=== PATIENT | male | born 2000 | race Caucasian/White ===

== ENCOUNTER 2019-08-07 14:54 | Emergency (ER) | payer SELFPAY ==
[~2019-08-07] VITALS: Ht 175.3 cm; Wt 54.4 kg
[~2019-08-07 14:54] MED LIST: ACET-73 PO; IBUP-1627 PO; NAPR220T66 PO; OSEL75CA PO
[2019-08-07 15:43] VITALS: BP 113/60
--- NOTE | 2019-08-07 15:44 | NUR ---
Discharge instructions given and patient discarged.
== END 2019-08-07 15:45 | disposition home or self-care (01) ==
LOC: ER 15:02
DX: R07.89 Other chest pain (principal); R05 Cough; K21.9 Gastro-esophageal reflux disease without esophagitis; Z79.1 Long term (current) use of non-steroidal anti-inflammatories (NSAID); Z79.899 Other long term (current) drug therapy
CPT/HCPCS: 71101; A4663

== ENCOUNTER 2020-01-19 19:13 | Emergency (ER) | payer SELFPAY ==
[~2020-01-19] VITALS: Ht 175.3 cm; Wt 56.7 kg
--- NOTE | 2020-01-19 21:45 | NUR ---
Patient discharged to home in stable conditon. Written and verbal after care instructions given. Patient verbalizes understanding of instructions. walked out of ER with no distress noted.
== END 2020-01-19 21:47 | disposition home or self-care (01) ==
LOC: ER 19:15
DX: B35.8 Other dermatophytoses (principal); L25.9 Unspecified contact dermatitis, unspecified cause; K21.9 Gastro-esophageal reflux disease without esophagitis; Z79.899 Other long term (current) drug therapy
CPT/HCPCS: A4663

== ENCOUNTER 2020-02-20 05:40 | Emergency (ER) | payer MEDICAID ==
[~2020-02-20] VITALS: Ht 175.3 cm; Wt 54.4 kg
--- NOTE | 2020-02-20 05:45 | NUR ---
Patient was brought into the ER by his mother complaining of right flank pain x 2 days worsening this morning to the point of waking him up. pain rated 10/10. He is visibly grimacing and guarding his right side. Patient was seen pacing in the waiting room while his mother filled out admission paperwork. Vital signs stable.
[2020-02-20 06:12] LABS: BASOPHILS # (AUTO) 0.1 K/uL (0.0-8.0); BASOPHILS % (AUTO) 1.1 % (0.0-2.0); EOSINOPHILS # (AUTO) 0.2 K/uL (0.0-0.7); EOSINOPHILS % (AUTO) 2.7 % (0.0-7.0); HEMATOCRIT 43.2 % (36.7-47.1); HEMOGLOBIN 14.4 g/dL (12.5-16.3); LYMPHOCYTES # (AUTO) 3.5 K/uL (20.0-40.0); LYMPHOCYTES % (AUTO) 38.9 % (20.5-74.5); MEAN CORPUSCULAR HEMOGLOBIN 30.6 uug (23.8-33.4); MEAN CORPUSCULAR HGB CONC 33 g/dL (32.5-36.3); MEAN CORPUSCULAR VOLUME 91.6 fL (73.0-96.2); MONOCYTES # (AUTO) 0.7 K/uL (2.0-10.0); MONOCYTES % (AUTO) 8.4 % (0-11); NEUTROPHILS # (AUTO) 4.4 K/uL (1.8-8.9); NEUTROPHILS % (AUTO) 48.9 % (31.5-64.5); PLATELET COUNT (AUTO) 338 K/uL (152-348); RED BLOOD CELL COUNT(AUTO) 4.71 MIL/uL (4.06-5.63); WHITE BLOOD COUNT (AUTO) 8.9 K/uL (3.6-10.2)
[2020-02-20 06:14] LABS: *BILIRUBIN,URIN NEGATIVE (NEGATIVE); *BLOOD, URINE 2+ (NEGATIVE); *COLOR,URINE YELLOW (YELLOW); *KETONES,URINE NEGATIVE (NEGATIVE); *UROBILINOGEN,URINE 0.2 E.U./dl (NORMAL); LEUKOCYTE ESTERASE ,URINE NEGATIVE (NEGATIVE); NITRITE, URINE NEGATIVE (NEGATIVE); UGLUCOSE NEGATIVE (NEGATIVE)
[2020-02-20] MEDS ORDERED: KETOROLAC TROMETHAMINE 15 MG INJ ONE ×2 (06:18→06:22)
[2020-02-20] MEDS ORDERED: HYDROMORPHONE 1 MG/1 ML DISP.SYRIN ONE (06:19)
[2020-02-20] MEDS ORDERED: ONDANSETRON 4 MG/2 ML VIAL ONE (06:19)
[2020-02-20 06:21] LABS: CREATININE 1.1 mg/dL (0.6-1.3); POTASSIUM 4.1 mmol/L (3.5-5.1)
[2020-02-20 06:25] LABS: *CLARITY,URINE HAZY (CLEAR)
[2020-02-20 06:26] LABS: RBC,URINE 80-100 /HPF (0-3)
[2020-02-20 06:27] LABS: BILIRUBIN,DIRECT 0.1 mg/dL (0.0-0.2); BILIRUBIN,TOTAL 0.2 mg/dL (0.2-1.0); TOTAL PROTEIN, SERUM 8.1 g/dL (6.4-8.2)
[2020-02-20 06:29] LABS: BACTERIA,URINE NONE SEEN /HPF (NONE SEEN); MUCUS,URINE FEW /LPF (0-FEW); SQUAMOUS EPITHELIAL CELL,UR FEW /HPF (NONE SEEN)
[2020-02-20] MEDS: HYDROMORPHONE 1 MG/1 ML DISP.SYRIN IV ONE (06:35)
[2020-02-20] MEDS: IV NORMAL SALINE 1000 ML BAG IV ONE (06:36)
[2020-02-20] MEDS: ONDANSETRON 4 MG/2 ML VIAL IV ONE (06:37)
[2020-02-20] MEDS: KETOROLAC TROMETHAMINE 15 MG INJ IVP ONE (06:41)
--- NOTE | 2020-02-20 07:00 | NUR ---
Reassessed for effectiveness of pain medication. Patient reports feeling much better and rated his pain 1/10.
--- NOTE | 2020-02-20 07:07 | NUR ---
Hand off report given to Paula TILLEY
--- NOTE | 2020-02-20 07:55 | NUR ---
Reviewed D/C instructions and patiet verbalizes understanding, RX given, D/C IV. Patient ambulated out of the ER with a steady gait, mother here to pick him up.
[2020-02-20 08:00] VITALS: BP 123/84
== END 2020-02-20 07:55 | disposition home or self-care (01) ==
LOC: ER 05:42
DX: N23 Unspecified renal colic (principal); K21.9 Gastro-esophageal reflux disease without esophagitis
CPT/HCPCS: 36415; 74176; 80048; 80076; 81000; 81001; 83690; 85025; 87086; 96374; 96375; 99284; J1170; J1885 ×2; J2405; A4663; J7030

== ENCOUNTER 2022-10-18 11:17 | Emergency (ER) | payer SELFPAY ==
[~2022-10-18] VITALS: Ht 172.7 cm; Wt 64.9 kg
[2022-10-18] MEDS ORDERED: ONDANSETRON 4 MG/2 ML VIAL IV ONE (11:30)
[2022-10-18] MEDS ORDERED: KETOROLAC TROMETHAMINE 15 MG INJ IVP ONE (11:30)
[2022-10-18] MEDS ORDERED: MORPHINE SULFATE 2 MG/1 ML DISP.SYRIN IV ONE (11:30)
[2022-10-18] MEDS ORDERED: IV NORMAL SALINE 1000 ML BAG IV ONE (11:30)
[2022-10-18 11:42] LABS: HEMATOCRIT 41.9 % (36.7-47.1); MEAN CORPUSCULAR HEMOGLOBIN 30.7 uug (23.8-33.4); MEAN CORPUSCULAR VOLUME 91.3 fL (73.0-96.2); PLATELET COUNT (AUTO) 247 K/uL (152-348)
[2022-10-18 11:49] LABS: *BILIRUBIN,URIN NEGATIVE (NEGATIVE); *BLOOD, URINE 2+ (NEGATIVE); *CLARITY,URINE CLEAR (CLEAR); *COLOR,URINE YELLOW (YELLOW); *KETONES,URINE TRACE (NEGATIVE); *UROBILINOGEN,URINE 0.2 E.U./dl (NORMAL); LEUKOCYTE ESTERASE ,URINE TRACE (NEGATIVE); NITRITE, URINE NEGATIVE (NEGATIVE); UGLUCOSE NEGATIVE (NEGATIVE)
[2022-10-18] MEDS ORDERED: MORPHINE SULFATE 4 MG/1 ML DISP.SYRIN ONE (11:53)
[2022-10-18] MEDS ORDERED: KETOROLAC TROMETHAMINE 15 MG INJ ONE (11:54)
[2022-10-18] MEDS ORDERED: ONDANSETRON 4 MG/2 ML VIAL ONE (11:54)
[2022-10-18 11:57] LABS: CREATININE 1.2 mg/dL (0.6-1.3); POTASSIUM 3.7 mmol/L (3.5-5.1)
[2022-10-18 12:02] LABS: BILIRUBIN,DIRECT 0.1 mg/dL (0.0-0.2); BILIRUBIN,TOTAL 0.6 mg/dL (0.2-1.0); TOTAL PROTEIN, SERUM 7.7 g/dL (6.4-8.2)
--- NOTE | 2022-10-18 12:08 | NUR ---
PT IS IN ROOM #2B. DR LAMAR EVALUATED THE PT.
[2022-10-18] MEDS ORDERED: AMOX-430 PO (13:40)
[2022-10-18] MEDS ORDERED: ONDA4TAB11 PO (13:40)
[2022-10-18] MEDS ORDERED: TAMS-3 PO (13:40)
--- NOTE | 2022-10-18 14:00 | NUR ---
PT WAS D/C'd HOME. D/C INSTRUCTIONS GIVEN TO THE PT BY DR LAMAR.
[2022-10-18 14:02] VITALS: BP 131/72
[2022-10-18 18:00] LABS: SQUAMOUS EPITHELIAL CELL,UR FEW /HPF (NONE SEEN); WBC,URINE 0-3 /HPF (0-3)
[2022-10-18 18:01] LABS: BACTERIA,URINE FEW /HPF (NONE SEEN)
== END 2022-10-18 14:03 | disposition home or self-care (01) ==
LOC: ER 11:36
DX: N13.2 Hydronephrosis with renal and ureteral calculous obstruction (principal); K52.9 Noninfective gastroenteritis and colitis, unspecified; K21.9 Gastro-esophageal reflux disease without esophagitis; Z87.442 Personal history of urinary calculi
CPT/HCPCS: 99285; 96361; 74176; 96374; 96375; 80076; 80048; 81001; 83690; 85025; 36415; J1885; J2405; J2270; J7040; A4663

== ENCOUNTER 2023-03-19 07:21 | Emergency (ER) | payer SELFPAY ==
[~2023-03-19] VITALS: Ht 172.7 cm; Wt 63.5 kg
[~2023-03-19 07:21] MED LIST changes: -ACET-73 PO; +AMOX-430 PO; -IBUP-1627 PO; -NAPR220T66 PO; +ONDA4TAB11 PO; -OSEL75CA PO; +TAMS-3 PO
[2023-03-19] MEDS ORDERED: IV NORMAL SALINE 1000 ML BAG IV ONE (07:30)
[2023-03-19] MEDS ORDERED: ONDANSETRON 4 MG/2 ML VIAL IV ONE (07:30)
[2023-03-19] MEDS ORDERED: TAMSULOSIN HCL 0.4 MG CAP.SR.24H PO ONE (07:30)
[2023-03-19] MEDS ORDERED: KETOROLAC TROMETHAMINE 15 MG INJ IVP ONE (07:30)
[2023-03-19] MEDS ORDERED: ONDANSETRON 4 MG/2 ML VIAL ONE (07:40)
[2023-03-19] MEDS ORDERED: KETOROLAC TROMETHAMINE 30 MG INJ ONE (07:40)
[2023-03-19] MEDS ORDERED: MORPHINE SULFATE 4 MG/1 ML DISP.SYRIN ONE (07:40)
[2023-03-19] MEDS ORDERED: MORPHINE SULFATE 4 MG/1 ML DISP.SYRIN IV ONE (07:45)
[2023-03-19] MEDS ORDERED: TAMSULOSIN HCL 0.4 MG CAP.SR.24H ONE (07:46)
[2023-03-19 07:47] LABS: HEMATOCRIT 41.8 % (36.7-47.1); MEAN CORPUSCULAR HEMOGLOBIN 30.5 uug (23.8-33.4); MEAN CORPUSCULAR VOLUME 91.4 fL (73.0-96.2); PLATELET COUNT (AUTO) 295 K/uL (152-348)
[2023-03-19 08:02] LABS: BILIRUBIN,DIRECT 0.1 mg/dL (0.0-0.2); BILIRUBIN,TOTAL 0.4 mg/dL (0.2-1.0); CREATININE 1.2 mg/dL (0.6-1.3); POTASSIUM 3.6 mmol/L (3.5-5.1); TOTAL PROTEIN, SERUM 7.9 g/dL (6.4-8.2)
--- NOTE | 2023-03-19 08:29 | NUR ---
Pt seen by . Safety measures in place. Will continue to monitor.
[2023-03-19] MEDS ORDERED: ONDA4TAB11 PO (08:50)
[2023-03-19] MEDS ORDERED: TAMS-3 PO (08:50)
[2023-03-19] MEDS ORDERED: IBUP-1957 PO (08:50)
--- NOTE | 2023-03-19 08:53 | NUR ---
Sent [facility]A to lab. Safety measures in place. Will continue to monitor.
[2023-03-19 09:04] LABS: *BILIRUBIN,URIN NEGATIVE (NEGATIVE); *BLOOD, URINE 3+ (NEGATIVE); *CLARITY,URINE CLEAR (CLEAR); *COLOR,URINE YELLOW (YELLOW); *KETONES,URINE NEGATIVE (NEGATIVE); *UROBILINOGEN,URINE 0.2 E.U./dl (NORMAL); LEUKOCYTE ESTERASE ,URINE NEGATIVE (NEGATIVE); NITRITE, URINE NEGATIVE (NEGATIVE); UGLUCOSE NEGATIVE (NEGATIVE)
--- NOTE | 2023-03-19 09:18 | NUR ---
Pt declined using Ultrasound. Safety measures in place. Will continue to monitor.
[2023-03-19 09:22] LABS: BACTERIA,URINE NONE SEEN /HPF (NONE SEEN)
--- NOTE | 2023-03-19 09:22 | NUR ---
Patient discharged to home in stable condition. Written and verbal after care instructions given. Patient verbalizes understanding of instructions. Informed patient to not drive due to opioid administration. Stressed follow up or return to ER for worsening s/s.
[2023-03-19 09:23] VITALS: BP 112/63
[2023-03-19 09:23] LABS: SQUAMOUS EPITHELIAL CELL,UR NONE SEEN /HPF (NONE SEEN); YEAST,URINE NONE SEEN /HPF (NONE SEEN)
[2023-03-19 09:24] LABS: CALCIUM CARBONATE CRYSTALS,UR NONE SEEN /HPF (NONE SEEN); CALCIUM OXALATE CRYSTALS,UR MANY /HPF (NONE SEEN); CALCIUM PHOSPHATE CRYSTALS,UR NONE SEEN /HPF (NONE SEEN); COARSE GRANULAR CASTS,URINE NONE SEEN /LPF; CYSTINE CRYSTALS,URINE NONE SEEN /HPF (NONE SEEN); FATTY CASTS,URINE NONE SEEN /LPF (NONE SEEN); TRICHOMONAS,URINE NONE SEEN /HPF (NONE SEEN); TRIPLE PHOSPHATE CRYSTAL,UR NONE SEEN /HPF (NONE SEEN); TYROSINE CRYSTAL,URINE NONE SEEN /HPF (NONE SEEN); URIC ACID CRYSTALS,URINE NONE SEEN /HPF (NONE SEEN); URINE AMORPHOUS PHOSPHATES NONE SEEN /HPF; URINE AMORPHOUS URATE NONE SEEN /HPF; WAXY CASTS,URINE NONE SEEN /LPF (NONE SEEN)
[2023-03-19 09:25] LABS: MUCUS,URINE NONE SEEN /LPF (0-FEW); RBC,URINE 80-100 /HPF (0-3); RED BLOOD CELL CASTS,URINE NONE SEEN /LPF (NONE SEEN)
[2023-03-19 09:26] LABS: SPERM,URINE NONE SEEN /HPF (NONE SEEN)
== END 2023-03-19 09:28 | disposition home or self-care (01) ==
LOC: ER 07:21
DX: N20.0 Calculus of kidney (principal); R11.2 Nausea with vomiting, unspecified; K21.9 Gastro-esophageal reflux disease without esophagitis; Z88.1 Allergy status to other antibiotic agents; Z79.1 Long term (current) use of non-steroidal anti-inflammatories (NSAID); Z79.2 Long term (current) use of antibiotics; Z79.899 Other long term (current) drug therapy
CPT/HCPCS: 99284; 96374; 96375; 96361; 80076; 80048; 81001; 83690; 85025; 36415; J1885; J2405; J2270; J7040; A4663